=== PATIENT | female | born 1965 | race Caucasian/White ===

== ENCOUNTER 2018-07-10 16:51 | Inpatient (IN) | payer OTHER, MEDICAID ==
[2018-07-10] MEDS: morphine 4 MG/ML VIAL IM (17:04)
[2018-07-10] MEDS: ONDANSETRON (ODT) 4 MG TAB ODT (17:04)
[2018-07-10] MEDS: ONDANSETRON 4 MG INJ IV (19:57)
[2018-07-10] MEDS: morphine 4 MG/ML VIAL IV (19:57)
[2018-07-10] MEDS: SOD CHLORIDE 0.9% 500 ML IV (19:57)
[2018-07-10 20:09] LABS: ADD MAN DIFF? NO
[2018-07-10 20:14] LABS: WHITE BLOOD COUNT 17.8 10^3/ul (4.8-10.8)
[2018-07-10 20:14] LABS: ABNORMAL IP MESSAGE 1; BASOPHIL # 0.1 10^3/ul (0.0-0.1); BASOPHILS % 0.5 % (0.0-2.0); EOSINOPHILS # 0.1 10^3/ul (0.0-0.5); EOSINOPHILS % 0.8 % (0.0-7.0); HEMATOCRIT 30.8 % (37.0-47.0); HEMOGLOBIN 9.5 g/dl (12.0-16.0); LYMPHOCYTES # 1.3 10^3/ul (0.8-2.9); MEAN CORPUSCULAR HEMOGLOBIN 28.6 pg (29.0-33.0); MEAN CORPUSCULAR HGB CONC 30.8 g/dl (32.0-37.0); MEAN CORPUSCULAR VOLUME 92.8 fl (82.0-101.0); MEAN PLATELET VOLUME 13.1 fl (7.4-10.4); MONOCYTE # 0.5 10^3/ul (0.3-0.9); MONOCYTES % 2.6 % (0.0-11.0); NEUTROPHIL # 15.1 10^3/ul (1.6-7.5); NEUTROPHILS % 85.2 % (39.0-77.0); PLATELET COUNT 280 10^3/UL (140-415); RED BLOOD COUNT 3.32 10^6/ul (4.20-5.40); RED CELL DISTRIBUTION WIDTH 16.5 % (11.5-14.5)
[2018-07-10 20:16] LABS: POSITIVE DIFF @See below
[2018-07-10] MEDS ORDERED: ACETAMINOPHEN 325 MG TAB PO (20:30)
[2018-07-10] MEDS ORDERED: ONDANSETRON 4 MG INJ IV ×2 (20:30→21:00)
[2018-07-10 20:35] LABS: INR 1.02; PARTIAL THROMBOPLASTIN TIME 27.3 Sec (23.0-35.0); PROTIME 13.5 Sec (11.9-14.9); PT RATIO 1.1
[2018-07-10 20:45] LABS: ANION GAP 7 (5-13); BLOOD UREA NITROGEN 25 mg/dl (7-20); CALCIUM 8.6 mg/dl (8.4-10.2); CARBON DIOXIDE 32 mmol/L (21-31); CHLORIDE 98 mmol/L (97-110); CREATININE 2.17 mg/dl (0.44-1.00); Estimated GFR 24 mL/min (>60); GLUCOSE 165 mg/dl (70-220); POTASSIUM 3.9 mmol/L (3.5-5.1); SODIUM 137 mmol/L (135-144)
[2018-07-10] MEDS ORDERED: NACL 0.9% 3 ML SYG IV (21:00)
[2018-07-10] MEDS ORDERED: DOCUSATE SODIUM 100 MG CAP PO (21:00)
[2018-07-10 21:06] LABS: CREATINE KINASE 28 IU/L (23-200)
[2018-07-10 21:20] LABS: CK-MB 1.69 ng/ml (0.0-2.4); TROPONIN-I < 0.012 ng/ml (0.000-0.120)
[2018-07-10] MEDS: HYDROmorphONE 2 MG/ML SYG IV (21:32)
[2018-07-10] MEDS: morphine 2 MG INJ IV (22:59)
[2018-07-11] MEDS: HYDROmorphONE 0.5 MG/0.5 ML SYG IV ×2 (02:27→20:15)
[2018-07-11] MEDS: ONDANSETRON 4 MG INJ IV (02:50)
[2018-07-11] MEDS ORDERED: DEXTROSE 50% 50 ML SYRINGE IV ×2 (04:30)
[2018-07-11] MEDS ORDERED: GLUCOSE GEL 15 GRAM TUBE PO ×2 (04:30)
[2018-07-11] MEDS ORDERED: GLUCAGON 1 MG INJ IM (04:30)
[2018-07-11 06:27] LABS: ADD MAN DIFF? NO
[2018-07-11 06:33] LABS: BASOPHIL # 0.1 10^3/ul (0.0-0.1); BASOPHILS % 0.4 % (0.0-2.0); EOSINOPHILS # 0.1 10^3/ul (0.0-0.5); EOSINOPHILS % 0.8 % (0.0-7.0); HEMATOCRIT 27.9 % (37.0-47.0); HEMOGLOBIN 8.6 g/dl (12.0-16.0); LYMPHOCYTES # 1.1 10^3/ul (0.8-2.9); LYMPHOCYTES % 6.9 % (15.0-51.0); MEAN CORPUSCULAR HEMOGLOBIN 29.2 pg (29.0-33.0); MEAN CORPUSCULAR HGB CONC 30.8 g/dl (32.0-37.0); MEAN CORPUSCULAR VOLUME 94.6 fl (82.0-101.0); MEAN PLATELET VOLUME 12.9 fl (7.4-10.4); MONOCYTE # 0.6 10^3/ul (0.3-0.9); MONOCYTES % 3.8 % (0.0-11.0); NEUTROPHIL # 13.3 10^3/ul (1.6-7.5); NEUTROPHILS % 84.8 % (39.0-77.0); PLATELET COUNT 229 10^3/UL (140-415); RED BLOOD COUNT 2.95 10^6/ul (4.20-5.40); RED CELL DISTRIBUTION WIDTH 16.7 % (11.5-14.5)
[2018-07-11 06:33] LABS: WHITE BLOOD COUNT 15.7 10^3/ul (4.8-10.8)
[2018-07-11 06:47] LABS: HEMOGLOBIN A1C 6.5 % (0-5.9)
[2018-07-11 06:50] LABS: INR 1.04; PROTIME 13.7 Sec (11.9-14.9); PT RATIO 1.1
[2018-07-11 06:51] LABS: PARTIAL THROMBOPLASTIN TIME 29.5 Sec (23.0-35.0)
[2018-07-11 06:58] LABS: ALANINE AMINOTRANSFERASE 16 IU/L (13-69); ALBUMIN 3.1 g/dl (3.3-4.9); ALBUMIN/GLOBULIN RATIO 1.14; ALKALINE PHOSPHATASE 110 IU/L (42-121); ANION GAP 10 (5-13); ASPARTATE AMINO TRANSFERASE 16 IU/L (15-46); BILIRUBIN,INDIRECT 0.4 mg/dl (0-1.1); BILIRUBIN,TOTAL 0.4 mg/dl (0.2-1.3); BLOOD UREA NITROGEN 32 mg/dl (7-20); CALCIUM 8.4 mg/dl (8.4-10.2); CARBON DIOXIDE 30 mmol/L (21-31); CHLORIDE 96 mmol/L (97-110); CHOLESTEROL 158 mg/dl (100-200); CREATININE 2.84 mg/dl (0.44-1.00); Estimated GFR 17 mL/min (>60); GLUCOSE 228 mg/dl (70-220); HDL CHOLESTEROL 26 mg/dl (37-92); LDL CHOLESTEROL,CALCULATED 78 mg/dl; POTASSIUM 4.7 mmol/L (3.5-5.1); SODIUM 136 mmol/L (135-144); TOTAL PROTEIN 5.8 g/dl (6.1-8.1); TRIGLYCERIDES 271 mg/dl (0-149)
[2018-07-11] MEDS ORDERED: PENDING SANTYL ORDER FOR WOUND CARE XX (07:00)
[2018-07-11] MEDS: INSULIN ASPART [NOVOLOG] 3 ML PEN SC ×6 (07:59→20:19)
[2018-07-11] MEDS: morphine (ER) 15 MG TAB PO ×2 (14:30→17:48)
[2018-07-11 16:58] LABS: ADD UMIC YES; UR ASCORBIC ACID NEGATIVE (NEGATIVE); UR BACTERIA MODERATE /HPF (NONE SEEN); UR BILIRUBIN (Dip) NEGATIVE (NEGATIVE); UR BLOOD (Dip) NEGATIVE (NEGATIVE); UR CLARITY TURBID (CLEAR); UR COLOR AMBER (YELLOW); UR GLUCOSE (Dip) NEGATIVE (NEGATIVE); UR KETONES (Dip) TRACE mg/dL (NEGATIVE); UR LEUKOCYTE ESTERASE (Dip) 2+ Leu/ul (NEGATIVE); UR MUCUS FEW /HPF (NONE SEEN); UR NITRITE (Dip) NEGATIVE (NEGATIVE); UR RBC 27 /HPF (0-5); UR SPECIFIC GRAVITY (Dip) 1.025 (1.003-1.030); UR SQUAMOUS EPITHELIAL CELL FEW /HPF (FEW); UR TOTAL PROTEIN (Dip) 2+ mg/dl (NEGATIVE); UR UROBILINOGEN (Dip) NEGATIVE (NEGATIVE); UR WBC > 182 /HPF (0-5)
[2018-07-11] MEDS: BUDESONIDE (NEB) 0.5MG/2ML AMP INH (19:41)
[2018-07-11] MEDS: DOCUSATE SODIUM 100 MG CAP PO (20:18)
[2018-07-11] MEDS: FERROUS SULFATE (EC) 325 MG TAB PO (20:18)
[2018-07-11] MEDS: INSULIN GLARGINE [LANTus] (100 UNITS/ML) SYG SC (20:24)
[2018-07-11] MEDS: ARFORMOTEROL TARTRATE 15MCG/2 ML AMP INH (20:41)
[2018-07-11] MEDS ORDERED: DIPHENHYDRAMINE 50 MG INJ IM (22:00)
[2018-07-11] MEDS: DIPHENHYDRAMINE 50 MG INJ IV (22:07)
[2018-07-12] MEDS: ACCU-CHEK XX (02:00)
[2018-07-12] MEDS: SOD CHLORIDE 0.9% 1,000 ML IV (02:22)
[2018-07-12] MEDS: MIDODRINE 5 MG TAB PO (03:52)
[2018-07-12] MEDS: ACETAMINOPHEN 325 MG TAB PO (03:59)
[2018-07-12] MEDS ORDERED: VANCOMYCIN IV PER PHARMACY XX (04:00)
[2018-07-12] MEDS: SOD CHLORIDE 0.9% 500 ML IV (04:05)
[2018-07-12] MEDS: CEFTRIAXONE 2 GM/50 ML (PMX) 50 ML IVPB (05:08)
[2018-07-12 05:37] LABS: ADD MAN DIFF? NO
[2018-07-12 05:39] LABS: WHITE BLOOD COUNT 15.5 10^3/ul (4.8-10.8)
[2018-07-12 05:39] LABS: ABNORMAL IP MESSAGE 1; BASOPHIL # 0.1 10^3/ul (0.0-0.1); BASOPHILS % 0.4 % (0.0-2.0); EOSINOPHILS # 0.4 10^3/ul (0.0-0.5); EOSINOPHILS % 2.5 % (0.0-7.0); HEMATOCRIT 23.8 % (37.0-47.0); HEMOGLOBIN 7.2 g/dl (12.0-16.0); LYMPHOCYTES # 1.4 10^3/ul (0.8-2.9); LYMPHOCYTES % 8.9 % (15.0-51.0); MEAN CORPUSCULAR HEMOGLOBIN 28.7 pg (29.0-33.0); MEAN CORPUSCULAR HGB CONC 30.3 g/dl (32.0-37.0); MEAN CORPUSCULAR VOLUME 94.8 fl (82.0-101.0); MEAN PLATELET VOLUME 13.6 fl (7.4-10.4); MONOCYTE # 0.8 10^3/ul (0.3-0.9); MONOCYTES % 5.4 % (0.0-11.0); NEUTROPHIL # 12.5 10^3/ul (1.6-7.5); NEUTROPHILS % 80.5 % (39.0-77.0); PLATELET COUNT 201 10^3/UL (140-415); RED BLOOD COUNT 2.51 10^6/ul (4.20-5.40); RED CELL DISTRIBUTION WIDTH 16.6 % (11.5-14.5)
[2018-07-12] MEDS ORDERED: NORepinephrine 8MG/250 ML (PMX 250 ML (05:47)
[2018-07-12 05:53] LABS: POSITIVE DIFF @See below
[2018-07-12 06:18] LABS: LACTIC ACID 0.9 mmol/L (0.5-2.0)
[2018-07-12] MEDS: HYDROmorphONE 0.5 MG/0.5 ML SYG IV ×2 (06:18→14:03)
[2018-07-12] MEDS: VANCOMYCIN 1 GM 250 ML IVPB (06:18)
[2018-07-12] MEDS: NORepinephrine 8MG/250 ML (PMX 250 ML IV (06:22)
[2018-07-12 06:42] LABS: ALANINE AMINOTRANSFERASE 20 IU/L (13-69); ALBUMIN 2.5 g/dl (3.3-4.9); ALKALINE PHOSPHATASE 91 IU/L (42-121); ANION GAP 11 (5-13); ASPARTATE AMINO TRANSFERASE 13 IU/L (15-46); BILIRUBIN,INDIRECT 0.3 mg/dl (0-1.1); BILIRUBIN,TOTAL 0.3 mg/dl (0.2-1.3); BLOOD UREA NITROGEN 44 mg/dl (7-20); CALCIUM 7.8 mg/dl (8.4-10.2); CARBON DIOXIDE 27 mmol/L (21-31); CHLORIDE 95 mmol/L (97-110); CREATININE 3.71 mg/dl (0.44-1.00); Estimated GFR 13 mL/min (>60); GLUCOSE 108 mg/dl (70-220); POTASSIUM 5.8 mmol/L (3.5-5.1); SODIUM 133 mmol/L (135-144)
[2018-07-12] MEDS: INSULIN ASPART [NOVOLOG] 3 ML PEN SC ×7 (07:35→21:00)
[2018-07-12] MEDS: AMLODIPINE 10 MG TAB PO (08:14)
[2018-07-12] MEDS: ARFORMOTEROL TARTRATE 15MCG/2 ML AMP INH ×2 (08:24→20:25)
[2018-07-12] MEDS: BUDESONIDE (NEB) 0.5MG/2ML AMP INH ×2 (08:24→20:25)
[2018-07-12] MEDS: HEPARIN 5,000 UNIT/1 ML VIAL SC ×2 (09:00→21:42)
[2018-07-12] MEDS: MONTELUKAST 10 MG TAB PO (09:02)
[2018-07-12] MEDS: DOCUSATE SODIUM 100 MG CAP PO (09:02)
[2018-07-12] MEDS: DIPHENHYDRAMINE 50 MG INJ IV (09:02)
[2018-07-12] MEDS: FERROUS SULFATE (EC) 325 MG TAB PO (09:02)
[2018-07-12] MEDS: morphine (ER) 15 MG TAB PO (09:03)
[2018-07-12] MEDS: POLYETHYLENE GLYCOL 17 GM PACKET PO (09:03)
[2018-07-12] MEDS: ASPIRIN 81 MG TAB PO (09:03)
[2018-07-12 09:44] LABS: ADD UMIC YES; UR ASCORBIC ACID NEGATIVE (NEGATIVE); UR BACTERIA FEW /HPF (NONE SEEN); UR BILIRUBIN (Dip) NEGATIVE (NEGATIVE); UR BLOOD (Dip) 1+ mg/dL (NEGATIVE); UR CLARITY TURBID (CLEAR); UR COLOR YELLOW (YELLOW); UR GLUCOSE (Dip) NEGATIVE (NEGATIVE); UR KETONES (Dip) NEGATIVE (NEGATIVE); UR LEUKOCYTE ESTERASE (Dip) 1+ Leu/ul (NEGATIVE); UR NITRITE (Dip) NEGATIVE (NEGATIVE); UR RBC 85 /HPF (0-5); UR SPECIFIC GRAVITY (Dip) 1.023 (1.003-1.030); UR SQUAMOUS EPITHELIAL CELL FEW /HPF (FEW); UR TOTAL PROTEIN (Dip) 2+ mg/dl (NEGATIVE); UR UROBILINOGEN (Dip) NEGATIVE (NEGATIVE); UR WBC > 182 /HPF (0-5)
[2018-07-12 10:16] LABS: ADD MAN DIFF? NO
[2018-07-12 10:23] LABS: ABNORMAL IP MESSAGE 1; BASOPHIL # 0.1 10^3/ul (0.0-0.1); BASOPHILS % 0.4 % (0.0-2.0); EOSINOPHILS # 0.4 10^3/ul (0.0-0.5); EOSINOPHILS % 2.5 % (0.0-7.0); HEMATOCRIT 25.6 % (37.0-47.0); HEMOGLOBIN 7.8 g/dl (12.0-16.0); LYMPHOCYTES # 1.6 10^3/ul (0.8-2.9); LYMPHOCYTES % 9.6 % (15.0-51.0); MEAN CORPUSCULAR HGB CONC 30.5 g/dl (32.0-37.0); MEAN CORPUSCULAR VOLUME 95.2 fl (82.0-101.0); MEAN PLATELET VOLUME 13.2 fl (7.4-10.4); MONOCYTE # 0.9 10^3/ul (0.3-0.9); MONOCYTES % 5.1 % (0.0-11.0); NEUTROPHIL # 13.3 10^3/ul (1.6-7.5); NEUTROPHILS % 79.7 % (39.0-77.0); PLATELET COUNT 225 10^3/UL (140-415); RED BLOOD COUNT 2.69 10^6/ul (4.20-5.40); RED CELL DISTRIBUTION WIDTH 16.5 % (11.5-14.5)
[2018-07-12 10:23] LABS: WHITE BLOOD COUNT 16.6 10^3/ul (4.8-10.8)
[2018-07-12 10:28] LABS: POSITIVE DIFF @See below
[2018-07-12 10:33] LABS: IRON 23 ug/dl (35-150)
[2018-07-12] MEDS: LIDOCAINE 1% (MPF) 5 ML VIAL SC (10:33)
[2018-07-12 10:37] LABS: LACTIC ACID 0.7 mmol/L (0.5-2.0)
[2018-07-12 10:43] LABS: % IRON SATURATION 14 % SAT (22-52); TOTAL IRON BINDING CAPACITY 163 ug/dl (241-421)
[2018-07-12] MEDS: ONDANSETRON 4 MG INJ IV (18:15)
[2018-07-12] MEDS: EPOETIN ALFA-EPBX (ESRD) 10,000 UNIT/ML VIAL SC (18:16)
[2018-07-12 20:36] LABS: HEPATITIS B SURFACE ANTIGEN NEGATIVE (NEGATIVE)
[2018-07-12 20:55] LABS: HEPATITIS B SURFACE ANTIBODY NEGATIVE (NEGATIVE)
[2018-07-12] MEDS: INSULIN GLARGINE [LANTus] (100 UNITS/ML) SYG SC (21:41)
[2018-07-13] MEDS: HEPARIN 1000 UNITS/ML 10 ML INJ CATHETER (00:02)
[2018-07-13] MEDS: DOCUSATE SODIUM 100 MG CAP PO ×3 (00:06→21:52)
[2018-07-13] MEDS: ALBUMIN HUMAN 25% 100 ML IV ×3 (00:07→11:41)
[2018-07-13] MEDS: NORepinephrine 8MG/250 ML (PMX 250 ML IV (00:10)
[2018-07-13] MEDS: ACCU-CHEK XX (02:00)
[2018-07-13] MEDS: CEFTRIAXONE 2 GM/50 ML (PMX) 50 ML IVPB (04:13)
[2018-07-13 06:15] LABS: ABNORMAL IP MESSAGE 1; HEMATOCRIT 20.4 % (37.0-47.0); MEAN CORPUSCULAR HEMOGLOBIN 28.8 pg (29.0-33.0); MEAN CORPUSCULAR HGB CONC 30.4 g/dl (32.0-37.0); MEAN CORPUSCULAR VOLUME 94.9 fl (82.0-101.0); PLATELET COUNT 190 10^3/UL (140-415); RED BLOOD COUNT 2.15 10^6/ul (4.20-5.40)
[2018-07-13 06:15] LABS: WHITE BLOOD COUNT 11.2 10^3/ul (4.8-10.8)
[2018-07-13 06:29] LABS: ANION GAP 8 (5-13); BLOOD UREA NITROGEN 19 mg/dl (7-20); CALCIUM 8.1 mg/dl (8.4-10.2); CARBON DIOXIDE 28 mmol/L (21-31); CHLORIDE 98 mmol/L (97-110); CREATININE 2.06 mg/dl (0.44-1.00); Estimated GFR 25 mL/min (>60); GLUCOSE 81 mg/dl (70-220); MAGNESIUM 1.9 mg/dl (1.7-2.5); PHOSPHORUS 5.7 mg/dl (2.5-4.9); POTASSIUM 4.2 mmol/L (3.5-5.1); SODIUM 134 mmol/L (135-144)
[2018-07-13 06:54] LABS: HEMOGLOBIN 6.2 g/dl (12.0-16.0)
[2018-07-13 06:55] LABS: POSITIVE DIFF @See below
[2018-07-13 06:56] LABS: ADD MAN DIFF? YES
[2018-07-13] MEDS: INSULIN ASPART [NOVOLOG] 3 ML PEN SC ×7 (07:35→21:00)
[2018-07-13] MEDS ORDERED: INSULIN GLARGINE [LANTus] (100 UNITS/ML) SYG SC ×2 (08:00→21:00)
[2018-07-13 08:34] LABS: ANISOCYTOSIS 1+ (0-0); BAND NEUTROPHILS #M 0.3 10^3/ul (0.0-0.6); BAND NEUTROPHILS % (M) 3 % (0-4); EOSINOPHILS % (M) 1 % (0-7); GIANT THROMBO% (M) 2 % (0-0); HYPOCHROMASIA 1+ (0-0); LYMPHOCYTES % (M) 9 % (15-51); MONOCYTE #M 0.2 10^3/ul (0.3-0.9); MONOCYTES % (M) 2 % (0-11); PLATELET ESTIMATE NORMAL; POLYCHROMASIA 2+ (0-0); SEG NEUT #M 9.6 10^3/ul (1.6-7.5); SEGMENTED NEUTROPHILS (M) % 85 % (39-77); SMUDGE%M 3 % (0-0)
[2018-07-13 08:42] LABS: ADD MAN DIFF? NO
[2018-07-13] MEDS: MIDODRINE 5 MG TAB PO ×3 (08:46→17:00)
[2018-07-13] MEDS: ACETAMINOPHEN 325 MG TAB PO (08:46)
[2018-07-13] MEDS: ASPIRIN 81 MG TAB PO (08:46)
[2018-07-13] MEDS: MONTELUKAST 10 MG TAB PO (08:46)
[2018-07-13] MEDS: FAMOTIDINE 20 MG TAB PO (08:46)
[2018-07-13 08:50] LABS: WHITE BLOOD COUNT 11.1 10^3/ul (4.8-10.8)
[2018-07-13 08:50] LABS: ABNORMAL IP MESSAGE 1; BASOPHILS % 0.4 % (0.0-2.0); EOSINOPHILS # 0.2 10^3/ul (0.0-0.5); EOSINOPHILS % 1.8 % (0.0-7.0); HEMATOCRIT 19.4 % (37.0-47.0); LYMPHOCYTES # 1.1 10^3/ul (0.8-2.9); LYMPHOCYTES % 9.6 % (15.0-51.0); MEAN CORPUSCULAR HEMOGLOBIN 28.6 pg (29.0-33.0); MEAN CORPUSCULAR HGB CONC 29.9 g/dl (32.0-37.0); MEAN CORPUSCULAR VOLUME 95.6 fl (82.0-101.0); MEAN PLATELET VOLUME 13.2 fl (7.4-10.4); MONOCYTE # 0.5 10^3/ul (0.3-0.9); MONOCYTES % 4.7 % (0.0-11.0); NEUTROPHIL # 9.1 10^3/ul (1.6-7.5); NEUTROPHILS % 81.9 % (39.0-77.0); PLATELET COUNT 173 10^3/UL (140-415); RED BLOOD COUNT 2.03 10^6/ul (4.20-5.40); RED CELL DISTRIBUTION WIDTH 15.9 % (11.5-14.5)
[2018-07-13] MEDS: HEPARIN 5,000 UNIT/1 ML VIAL SC ×2 (09:00→21:00)
[2018-07-13 09:08] LABS: POSITIVE DIFF @See below
[2018-07-13 09:09] LABS: HEMOGLOBIN 5.8 g/dl (12.0-16.0)
[2018-07-13] MEDS: POLYETHYLENE GLYCOL 17 GM PACKET PO (09:19)
[2018-07-13] MEDS: HYDROmorphONE 0.5 MG/0.5 ML SYG IV (10:12)
[2018-07-13] MEDS: DIPHENHYDRAMINE 50 MG INJ IV (11:39)
[2018-07-13] MEDS: ARFORMOTEROL TARTRATE 15MCG/2 ML AMP INH ×2 (12:12→20:09)
[2018-07-13] MEDS: BUDESONIDE (NEB) 0.5MG/2ML AMP INH ×2 (12:13→20:09)
[2018-07-13] MEDS: SOD FERRIC GLUC COMPLX 125 MG in SOD CHLORIDE 0.9% 100 ML IVPB (13:00)
[2018-07-13 16:31] LABS: ANION GAP 12 (5-13); BLOOD UREA NITROGEN 20 mg/dl (7-20); CARBON DIOXIDE 26 mmol/L (21-31); CHLORIDE 98 mmol/L (97-110); CREATININE 2.36 mg/dl (0.44-1.00); Estimated GFR 22 mL/min (>60); GLUCOSE 83 mg/dl (70-220); MAGNESIUM 1.8 mg/dl (1.7-2.5); POTASSIUM 4.6 mmol/L (3.5-5.1); SODIUM 136 mmol/L (135-144)
[2018-07-13 16:43] LABS: TROPONIN-I < 0.012 ng/ml (0.000-0.120)
[2018-07-13 16:45] LABS: IMMEDIATE SPIN CROSSMATCH 1 2
[2018-07-13] MEDS: ATORVASTATIN 20 MG TAB PO (21:52)
[2018-07-13] MEDS: INSULIN GLARGINE [LANTus] (100 UNITS/ML) SYG SC (22:01)
[2018-07-14 00:55] LABS: TROPONIN-I < 0.012 ng/ml (0.000-0.120)
[2018-07-14] MEDS: ACCU-CHEK XX (02:00)
[2018-07-14] MEDS: CEFTRIAXONE 2 GM/50 ML (PMX) 50 ML IVPB (05:01)
[2018-07-14 05:27] LABS: ADD MAN DIFF? NO
[2018-07-14 05:30] LABS: ABNORMAL IP MESSAGE 1; BASOPHIL # 0.1 10^3/ul (0.0-0.1); BASOPHILS % 0.8 % (0.0-2.0); EOSINOPHILS # 0.1 10^3/ul (0.0-0.5); EOSINOPHILS % 1.6 % (0.0-7.0); HEMATOCRIT 24.9 % (37.0-47.0); LYMPHOCYTES # 1.4 10^3/ul (0.8-2.9); MEAN CORPUSCULAR HEMOGLOBIN 29.1 pg (29.0-33.0); MEAN CORPUSCULAR HGB CONC 32.1 g/dl (32.0-37.0); MEAN CORPUSCULAR VOLUME 90.5 fl (82.0-101.0); MEAN PLATELET VOLUME 13.5 fl (7.4-10.4); MONOCYTE # 0.7 10^3/ul (0.3-0.9); MONOCYTES % 7.4 % (0.0-11.0); NEUTROPHIL # 6.3 10^3/ul (1.6-7.5); PLATELET COUNT 189 10^3/UL (140-415); RED BLOOD COUNT 2.75 10^6/ul (4.20-5.40); RED CELL DISTRIBUTION WIDTH 17.1 % (11.5-14.5)
[2018-07-14 05:30] LABS: WHITE BLOOD COUNT 8.8 10^3/ul (4.8-10.8)
[2018-07-14 05:34] LABS: POSITIVE DIFF @See below
[2018-07-14 05:59] LABS: VANCOMYCIN,RANDOM 11.4 ug/ml
[2018-07-14 06:03] LABS: ANION GAP 12 (5-13); BLOOD UREA NITROGEN 29 mg/dl (7-20); CALCIUM 8.1 mg/dl (8.4-10.2); CARBON DIOXIDE 26 mmol/L (21-31); CHLORIDE 100 mmol/L (97-110); CREATININE 3.25 mg/dl (0.44-1.00); Estimated GFR 15 mL/min (>60); GLUCOSE 83 mg/dl (70-220); POTASSIUM 4.5 mmol/L (3.5-5.1); SODIUM 138 mmol/L (135-144)
[2018-07-14] MEDS: INSULIN ASPART [NOVOLOG] 3 ML PEN SC ×7 (07:35→21:00)
[2018-07-14] MEDS: LACTULOSE 30ML CUP PO (08:30)
[2018-07-14] MEDS ORDERED: BISACODYL (EC) 5 MG TAB PO (08:30)
[2018-07-14] MEDS: HYDROmorphONE 0.5 MG/0.5 ML SYG IV ×2 (08:42→13:18)
[2018-07-14] MEDS: ASPIRIN (EC) 81 MG TAB PO (08:43)
[2018-07-14] MEDS: DOCUSATE SODIUM 100 MG CAP PO ×2 (08:43→21:24)
[2018-07-14] MEDS: MIDODRINE 5 MG TAB PO ×3 (08:44→18:32)
[2018-07-14] MEDS: FAMOTIDINE 20 MG TAB PO (08:44)
[2018-07-14] MEDS: MONTELUKAST 10 MG TAB PO (08:44)
[2018-07-14] MEDS: POLYETHYLENE GLYCOL 17 GM PACKET PO (08:44)
[2018-07-14] MEDS: HEPARIN 5,000 UNIT/1 ML VIAL SC ×2 (09:00→21:31)
[2018-07-14] MEDS: ARFORMOTEROL TARTRATE 15MCG/2 ML AMP INH ×2 (09:39→19:58)
[2018-07-14] MEDS: BUDESONIDE (NEB) 0.5MG/2ML AMP INH ×2 (09:39→19:58)
[2018-07-14] MEDS: BISACODYL (EC) 5 MG TAB PO (11:58)
[2018-07-14] MEDS: ONDANSETRON 4 MG INJ IV ×2 (13:18→23:03)
[2018-07-14] MEDS: VANCOMYCIN 1 GM 250 ML IVPB (13:23)
[2018-07-14] MEDS: SOD FERRIC GLUC COMPLX 125 MG in SOD CHLORIDE 0.9% 100 ML IVPB (18:29)
[2018-07-14] MEDS: ATORVASTATIN 20 MG TAB PO (21:24)
[2018-07-14] MEDS: INSULIN GLARGINE [LANTus] (100 UNITS/ML) SYG SC (22:50)
[2018-07-15] MEDS: ACCU-CHEK XX (02:16)
[2018-07-15] MEDS: HYDROmorphONE 0.5 MG/0.5 ML SYG IV (02:32)
[2018-07-15] MEDS: GLUCOSE GEL 15 GRAM TUBE BUCCAL (02:32)
[2018-07-15] MEDS: CEFTRIAXONE 2 GM/50 ML (PMX) 50 ML IVPB (04:34)
[2018-07-15 05:19] LABS: ADD MAN DIFF? NO
[2018-07-15 05:26] LABS: ABNORMAL IP MESSAGE 1; BASOPHIL # 0.1 10^3/ul (0.0-0.1); BASOPHILS % 0.5 % (0.0-2.0); EOSINOPHILS # 0.1 10^3/ul (0.0-0.5); HEMATOCRIT 27.1 % (37.0-47.0); HEMOGLOBIN 8.5 g/dl (12.0-16.0); LYMPHOCYTES # 0.8 10^3/ul (0.8-2.9); LYMPHOCYTES % 8.6 % (15.0-51.0); MEAN CORPUSCULAR HEMOGLOBIN 28.9 pg (29.0-33.0); MEAN CORPUSCULAR HGB CONC 31.4 g/dl (32.0-37.0); MEAN CORPUSCULAR VOLUME 92.2 fl (82.0-101.0); MEAN PLATELET VOLUME 13.9 fl (7.4-10.4); MONOCYTE # 0.5 10^3/ul (0.3-0.9); MONOCYTES % 5.4 % (0.0-11.0); NEUTROPHIL # 7.7 10^3/ul (1.6-7.5); NEUTROPHILS % 82.5 % (39.0-77.0); PLATELET COUNT 219 10^3/UL (140-415); RED BLOOD COUNT 2.94 10^6/ul (4.20-5.40); RED CELL DISTRIBUTION WIDTH 16.6 % (11.5-14.5)
[2018-07-15 05:26] LABS: WHITE BLOOD COUNT 9.3 10^3/ul (4.8-10.8)
[2018-07-15 05:40] LABS: POSITIVE DIFF @See below
[2018-07-15 05:45] LABS: ANION GAP 14 (5-13); BLOOD UREA NITROGEN 31 mg/dl (7-20); CALCIUM 8.5 mg/dl (8.4-10.2); CARBON DIOXIDE 24 mmol/L (21-31); CHLORIDE 104 mmol/L (97-110); CREATININE 3.77 mg/dl (0.44-1.00); Estimated GFR 13 mL/min (>60); GLUCOSE 74 mg/dl (70-220); SODIUM 142 mmol/L (135-144)
[2018-07-15] MEDS: BUDESONIDE (NEB) 0.5MG/2ML AMP INH ×2 (07:36→21:01)
[2018-07-15] MEDS: ARFORMOTEROL TARTRATE 15MCG/2 ML AMP INH ×2 (07:36→21:10)
[2018-07-15] MEDS: MIDODRINE 5 MG TAB PO ×3 (09:00→17:00)
[2018-07-15] MEDS: HEPARIN 5,000 UNIT/1 ML VIAL SC ×2 (09:00→21:00)
[2018-07-15] MEDS: INSULIN ASPART [NOVOLOG] 3 ML PEN SC ×4 (09:20→21:00)
[2018-07-15] MEDS: DOCUSATE SODIUM 100 MG CAP PO ×2 (09:30→21:00)
[2018-07-15] MEDS: FAMOTIDINE 20 MG TAB PO (09:30)
[2018-07-15] MEDS: MONTELUKAST 10 MG TAB PO (09:30)
[2018-07-15] MEDS: BISACODYL (EC) 5 MG TAB PO (09:33)
[2018-07-15] MEDS: BISACODYL 10 MG SUPP PR (10:24)
[2018-07-15] MEDS: ASPIRIN (EC) 81 MG TAB PO (12:03)
[2018-07-15] MEDS: ALTEPLASE (CATHFLO) 2 MG INJ CATHETER (15:20)
[2018-07-15] MEDS: FLUCONAZOLE 200 MG (PMX) 100 ML IVPB (16:00)
[2018-07-15] MEDS: METOCLOPRAMIDE 10 MG INJ IV ×2 (16:02→17:26)
[2018-07-15] MEDS: morphine 2 MG INJ IV (17:24)
[2018-07-15] MEDS: SOD FERRIC GLUC COMPLX 125 MG in SOD CHLORIDE 0.9% 100 ML IVPB (17:25)
[2018-07-15] MEDS: EPOETIN ALFA-EPBX (ESRD) 10,000 UNIT/ML VIAL SC (18:09)
[2018-07-15] MEDS: ATORVASTATIN 20 MG TAB PO (21:00)
[2018-07-15] MEDS: DEXTROSE 5%-0.45% NACL 1,000 ML IV (21:50)
[2018-07-16] MEDS: ACCU-CHEK XX (02:00)
[2018-07-16] MEDS: morphine 2 MG INJ IV ×3 (04:44→17:27)
[2018-07-16] MEDS: METOCLOPRAMIDE 10 MG INJ IV ×2 (05:20)
[2018-07-16 05:42] LABS: ADD MAN DIFF? NO
[2018-07-16 05:49] LABS: ABNORMAL IP MESSAGE 1; BASOPHIL # 0.1 10^3/ul (0.0-0.1); BASOPHILS % 0.6 % (0.0-2.0); EOSINOPHILS # 0.1 10^3/ul (0.0-0.5); EOSINOPHILS % 0.9 % (0.0-7.0); HEMATOCRIT 28.1 % (37.0-47.0); HEMOGLOBIN 8.8 g/dl (12.0-16.0); LYMPHOCYTES % 11.5 % (15.0-51.0); MEAN CORPUSCULAR HEMOGLOBIN 29.3 pg (29.0-33.0); MEAN CORPUSCULAR HGB CONC 31.3 g/dl (32.0-37.0); MEAN CORPUSCULAR VOLUME 93.7 fl (82.0-101.0); MEAN PLATELET VOLUME 13.5 fl (7.4-10.4); MONOCYTE # 0.6 10^3/ul (0.3-0.9); MONOCYTES % 6.2 % (0.0-11.0); NEUTROPHIL # 7.1 10^3/ul (1.6-7.5); NEUTROPHILS % 78.7 % (39.0-77.0); PLATELET COUNT 247 10^3/UL (140-415); RED CELL DISTRIBUTION WIDTH 16.3 % (11.5-14.5)
[2018-07-16 05:56] LABS: POSITIVE DIFF @See below
[2018-07-16 06:18] LABS: ANION GAP 15 (5-13); BLOOD UREA NITROGEN 34 mg/dl (7-20); CALCIUM 8.6 mg/dl (8.4-10.2); CARBON DIOXIDE 22 mmol/L (21-31); CHLORIDE 105 mmol/L (97-110); CREATININE 3.87 mg/dl (0.44-1.00); Estimated GFR 12 mL/min (>60); GLUCOSE 141 mg/dl (70-220); MAGNESIUM 1.5 mg/dl (1.7-2.5); PHOSPHORUS 5.9 mg/dl (2.5-4.9); POTASSIUM 3.7 mmol/L (3.5-5.1); SODIUM 142 mmol/L (135-144)
[2018-07-16] MEDS: ARFORMOTEROL TARTRATE 15MCG/2 ML AMP INH ×2 (08:37→21:00)
[2018-07-16] MEDS: BUDESONIDE (NEB) 0.5MG/2ML AMP INH ×2 (08:37→21:01)
[2018-07-16] MEDS: INSULIN ASPART [NOVOLOG] 3 ML PEN SC ×4 (08:59→20:53)
[2018-07-16] MEDS: MIDODRINE 5 MG TAB PO ×3 (09:00→17:00)
[2018-07-16] MEDS: HEPARIN 1000 UNITS/ML 10 ML INJ CATHETER (10:29)
[2018-07-16] MEDS: ASPIRIN (EC) 81 MG TAB PO (11:18)
[2018-07-16] MEDS: DOCUSATE SODIUM 100 MG CAP PO ×2 (11:19→20:48)
[2018-07-16] MEDS: FAMOTIDINE 20 MG TAB PO (11:19)
[2018-07-16] MEDS: MONTELUKAST 10 MG TAB PO (11:19)
[2018-07-16] MEDS: POLYETHYLENE GLYCOL 17 GM PACKET PO (11:20)
[2018-07-16] MEDS: HEPARIN 5,000 UNIT/1 ML VIAL SC ×2 (11:29→20:51)
[2018-07-16] MEDS: SEVELAMER CARBONATE 800 MG TABLET PO ×2 (11:32→17:27)
[2018-07-16] MEDS: MAGNESIUM SULFATE 2 GM/50 ML 50 ML IVPB ×2 (11:34→15:28)
[2018-07-16] MEDS: SOD FERRIC GLUC COMPLX 125 MG in SOD CHLORIDE 0.9% 100 ML IVPB (13:46)
[2018-07-16] MEDS: FLUCONAZOLE 200 MG (PMX) 100 ML IVPB (13:52)
[2018-07-16] MEDS: COLLAGENASE 5 GM (UD JAR) TOP (17:27)
[2018-07-16] MEDS: ATORVASTATIN 20 MG TAB PO (20:47)
[2018-07-17] MEDS: ACCU-CHEK XX (01:43)
[2018-07-17 05:25] LABS: ADD MAN DIFF? NO
[2018-07-17 05:35] LABS: ABNORMAL IP MESSAGE 1; BASOPHIL # 0.1 10^3/ul (0.0-0.1); BASOPHILS % 0.8 % (0.0-2.0); EOSINOPHILS # 0.1 10^3/ul (0.0-0.5); EOSINOPHILS % 1.4 % (0.0-7.0); HEMATOCRIT 27.1 % (37.0-47.0); HEMOGLOBIN 8.4 g/dl (12.0-16.0); LYMPHOCYTES # 1.5 10^3/ul (0.8-2.9); LYMPHOCYTES % 16.5 % (15.0-51.0); MEAN CORPUSCULAR VOLUME 93.4 fl (82.0-101.0); MONOCYTE # 0.8 10^3/ul (0.3-0.9); MONOCYTES % 8.2 % (0.0-11.0); NEUTROPHIL # 6.4 10^3/ul (1.6-7.5); NEUTROPHILS % 68.3 % (39.0-77.0); PLATELET COUNT 265 10^3/UL (140-415); RED CELL DISTRIBUTION WIDTH 16.3 % (11.5-14.5)
[2018-07-17 05:35] LABS: WHITE BLOOD COUNT 9.3 10^3/ul (4.8-10.8)
[2018-07-17 05:54] LABS: ANION GAP 6 (5-13); BLOOD UREA NITROGEN 22 mg/dl (7-20); CALCIUM 8.5 mg/dl (8.4-10.2); CARBON DIOXIDE 30 mmol/L (21-31); CHLORIDE 104 mmol/L (97-110); Estimated GFR 20 mL/min (>60); GLUCOSE 175 mg/dl (70-220); POTASSIUM 3.3 mmol/L (3.5-5.1); SODIUM 140 mmol/L (135-144)
[2018-07-17 05:59] LABS: VANCOMYCIN,RANDOM 15.2 ug/ml
[2018-07-17 06:00] LABS: POSITIVE DIFF @See below
[2018-07-17 06:01] LABS: MEAN PLATELET VOLUME 13.5 fl (7.4-10.4)
[2018-07-17] MEDS: SEVELAMER CARBONATE 800 MG TABLET PO ×3 (08:44→17:25)
[2018-07-17] MEDS: ASPIRIN (EC) 81 MG TAB PO (08:45)
[2018-07-17] MEDS: MONTELUKAST 10 MG TAB PO (08:45)
[2018-07-17] MEDS: DOCUSATE SODIUM 100 MG CAP PO ×2 (08:45→22:25)
[2018-07-17] MEDS: FAMOTIDINE 20 MG TAB PO (08:45)
[2018-07-17] MEDS: POLYETHYLENE GLYCOL 17 GM PACKET PO (08:46)
[2018-07-17] MEDS: COLLAGENASE 5 GM (UD JAR) TOP (08:46)
[2018-07-17] MEDS: POTASSIUM CHLORIDE (SR) 20 MEQ TAB PO (08:46)
[2018-07-17] MEDS: HEPARIN 5,000 UNIT/1 ML VIAL SC ×2 (08:54→22:53)
[2018-07-17] MEDS: INSULIN ASPART [NOVOLOG] 3 ML PEN SC ×4 (08:55→22:25)
[2018-07-17] MEDS: INSULIN GLARGINE [LANTus] (100 UNITS/ML) SYG SC (08:56)
[2018-07-17] MEDS: morphine 2 MG INJ IV ×2 (09:13→15:42)
[2018-07-17] MEDS: BUDESONIDE (NEB) 0.5MG/2ML AMP INH ×2 (09:25→21:44)
[2018-07-17] MEDS: ARFORMOTEROL TARTRATE 15MCG/2 ML AMP INH ×2 (09:25→20:44)
[2018-07-17] MEDS: ONDANSETRON 4 MG INJ IV ×2 (09:57→17:31)
[2018-07-17] MEDS: SOD FERRIC GLUC COMPLX 125 MG in SOD CHLORIDE 0.9% 100 ML IVPB (12:46)
[2018-07-17] MEDS: FLUCONAZOLE 200 MG (PMX) 100 ML IVPB (12:46)
[2018-07-17] MEDS: VANCOMYCIN 1 GM 250 ML IVPB (15:00)
[2018-07-17] MEDS: LOSARTAN 50 MG TAB PO (15:38)
[2018-07-17] MEDS: AMLODIPINE 10 MG TAB PO (15:39)
[2018-07-17] MEDS ORDERED: hydrALAzine 20 MG INJ IV (17:00)
[2018-07-17] MEDS: hydrALAzine 20 MG INJ IV (17:31)
[2018-07-17] MEDS: HYDROmorphONE 0.5 MG/0.5 ML SYG IV (17:57)
[2018-07-17] MEDS: EPOETIN ALFA-EPBX (ESRD) 10,000 UNIT/ML VIAL SC (17:58)
[2018-07-17 18:01] LABS: MYOGLOBIN 70 mcg/L (< 67)
[2018-07-17] MEDS: ATORVASTATIN 20 MG TAB PO (22:53)
[2018-07-18] MEDS: HYDROmorphONE 0.5 MG/0.5 ML SYG IV (01:21)
[2018-07-18] MEDS: ACCU-CHEK XX (02:00)
[2018-07-18] MEDS: ONDANSETRON 4 MG INJ IV ×2 (02:57→12:48)
[2018-07-18] MEDS: morphine 2 MG INJ IV ×2 (03:07→12:49)
[2018-07-18 06:01] LABS: ABNORMAL IP MESSAGE 1; HEMATOCRIT 31.3 % (37.0-47.0); HEMOGLOBIN 9.3 g/dl (12.0-16.0); MEAN CORPUSCULAR HEMOGLOBIN 28.4 pg (29.0-33.0); MEAN CORPUSCULAR HGB CONC 29.7 g/dl (32.0-37.0); MEAN CORPUSCULAR VOLUME 95.7 fl (82.0-101.0); MEAN PLATELET VOLUME 13.3 fl (7.4-10.4); NUCLEATED RED BLOOD CELLS% 0.2 /100WBC (0.0-0.0); PLATELET COUNT 306 10^3/UL (140-415); RED BLOOD COUNT 3.27 10^6/ul (4.20-5.40); RED CELL DISTRIBUTION WIDTH 16.8 % (11.5-14.5)
[2018-07-18 06:18] LABS: ADD MAN DIFF? YES; POSITIVE DIFF @See below
[2018-07-18 06:24] LABS: ANION GAP 10 (5-13); BLOOD UREA NITROGEN 27 mg/dl (7-20); CALCIUM 9.3 mg/dl (8.4-10.2); CARBON DIOXIDE 27 mmol/L (21-31); CHLORIDE 106 mmol/L (97-110); CREATININE 2.83 mg/dl (0.44-1.00); Estimated GFR 17 mL/min (>60); GLUCOSE 113 mg/dl (70-220); POTASSIUM 4.6 mmol/L (3.5-5.1); SODIUM 143 mmol/L (135-144)
[2018-07-18] MEDS: INSULIN ASPART [NOVOLOG] 3 ML PEN SC ×2 (07:50→11:40)
[2018-07-18] MEDS: ARFORMOTEROL TARTRATE 15MCG/2 ML AMP INH (08:30)
[2018-07-18] MEDS: BUDESONIDE (NEB) 0.5MG/2ML AMP INH (08:38)
[2018-07-18 08:44] LABS: ANISOCYTOSIS 1+ (0-0); BAND NEUTROPHILS #M 0.3 10^3/ul (0.0-0.6); BAND NEUTROPHILS % (M) 3 % (0-4); EOSINOPHILS % (M) 2 % (0-7); GIANT THROMBO% (M) 12 % (0-0); LYMPHOCYTES #M 2.6 10^3/ul (0.8-2.9); LYMPHOCYTES % (M) 26 % (15-51); METAMYELOCYTES #M 0.1 10^3/ul (0.0-0.0); METAMYELOCYTES %M 1 % (0-0); MICROCYTOSIS 1+ (0-0); MONOCYTE #M 0.2 10^3/ul (0.3-0.9); MONOCYTES % (M) 2 % (0-11); MYELOCYTES #M 0.5 10^3/ul (0.0-0.0); MYELOCYTES % (M) 5 % (0-0); PLATELET ESTIMATE NORMAL; POIKILOCYTOSIS 1+ (0-0); POLYCHROMASIA 1+ (0-0); SEG NEUT #M 6.1 10^3/ul (1.6-7.5); SEGMENTED NEUTROPHILS (M) % 61 % (39-77); SMUDGE%M 5 % (0-0); SPHEROCYTES 1+ (0-0)
[2018-07-18] MEDS: SEVELAMER CARBONATE 800 MG TABLET PO ×2 (08:58→12:29)
[2018-07-18] MEDS: FAMOTIDINE 20 MG TAB PO (08:59)
[2018-07-18] MEDS: ASPIRIN (EC) 81 MG TAB PO (08:59)
[2018-07-18] MEDS: MONTELUKAST 10 MG TAB PO (08:59)
[2018-07-18] MEDS: DOCUSATE SODIUM 100 MG CAP PO (08:59)
[2018-07-18] MEDS: POLYETHYLENE GLYCOL 17 GM PACKET PO (08:59)
[2018-07-18] MEDS: LOSARTAN 50 MG TAB PO (09:00)
[2018-07-18] MEDS: AMLODIPINE 10 MG TAB PO (09:00)
[2018-07-18] MEDS: HEPARIN 5,000 UNIT/1 ML VIAL SC (09:01)
[2018-07-18] MEDS: INSULIN GLARGINE [LANTus] (100 UNITS/ML) SYG SC (09:55)
[2018-07-18] MEDS: HEPARIN 1000 UNITS/ML 10 ML INJ CATHETER (11:37)
[2018-07-18] MEDS: FLUCONAZOLE 200 MG (PMX) 100 ML IVPB (12:26)
== END 2018-07-18 16:17 | DRG 562 ==
LOC: PP2 20:02 → ICU 07-12 05:43 → MS1 07-14 13:23 → E/R 16:51
PROC: 05H633Z Insertion of Infusion Device into Left Subclavian Vein, Percutaneous Approach (ICD-10-PCS; principal; 2018-07-12)
PROC: 5A1D70Z Performance of Urinary Filtration, Intermittent, Less than 6 Hours Per Day (ICD-10-PCS; 2018-07-12)
PROC: 30233N1 Transfusion of Nonautologous Red Blood Cells into Peripheral Vein, Percutaneous Approach (ICD-10-PCS; 2018-07-13)
PROC: 5A1D70Z Performance of Urinary Filtration, Intermittent, Less than 6 Hours Per Day (ICD-10-PCS; 2018-07-16)
PROC: 5A1D70Z Performance of Urinary Filtration, Intermittent, Less than 6 Hours Per Day (ICD-10-PCS; 2018-07-18)
DX: S82.402A Unspecified fracture of shaft of left fibula, initial encounter for closed fracture (principal); R65.21 Severe sepsis with septic shock; N18.6 End stage renal disease; S72.434A Nondisplaced fracture of medial condyle of right femur, initial encounter for closed fracture; S72.492A Other fracture of lower end of left femur, initial encounter for closed fracture; S82.191A Other fracture of upper end of right tibia, initial encounter for closed fracture; I12.0 Hypertensive chronic kidney disease with stage 5 chronic kidney disease or end stage renal disease; J96.10 Chronic respiratory failure, unspecified whether with hypoxia or hypercapnia; S82.401A Unspecified fracture of shaft of right fibula, initial encounter for closed fracture; S82.192A Other fracture of upper end of left tibia, initial encounter for closed fracture; E11.22 Type 2 diabetes mellitus with diabetic chronic kidney disease; Z99.2 Dependence on renal dialysis; W05.0XXA Fall from non-moving wheelchair, initial encounter; Q05.9 Spina bifida, unspecified; Z79.4 Long term (current) use of insulin; D63.1 Anemia in chronic kidney disease; Z99.3 Dependence on wheelchair; E83.42 Hypomagnesemia; E87.5 Hyperkalemia
CPT/HCPCS: 36415; 36430; 36569; 71045; 72131; 73550; 73562; 73590; 73610; 73610-RT; 74018; 76937; 80048; 80053; 80061; 80202; 81001; 82533; 82550; 82553; 82728; 82962; 83036; 83540; 83605; 83735; 83874; 84100; 84443; 84484; 85025; 85610; 85730; 86706; 86850; 86900; 86901; 86920; 87040-91; 87081; 87086; 87340; 90935; 93005; 93306; 94640; 94664; 96372; 96374; 96375; 96376; 97110; 97163; 99285-25

== ENCOUNTER 2018-07-26 14:51 | Observation (INO) | payer OTHER, MEDICAID ==
[2018-07-26 17:48] LABS: ANION GAP 10 (5-13); BLOOD UREA NITROGEN 40 mg/dl (7-20); CALCIUM 8.6 mg/dl (8.4-10.2); CARBON DIOXIDE 24 mmol/L (21-31); CHLORIDE 102 mmol/L (97-110); CREATININE 2.85 mg/dl (0.44-1.00); Estimated GFR 17 mL/min (>60); GLUCOSE 162 mg/dl (70-220); SODIUM 136 mmol/L (135-144)
[2018-07-26] MEDS: HEPARIN 1000 UNITS/ML 10 ML INJ (18:15)
[2018-07-26] MEDS: FENTAnyl 50 MCG/ML VIAL (18:15)
[2018-07-26] MEDS: LIDOCAINE 1% (MDV) 20 ML INJ ×2 (18:15→18:16)
[2018-07-26] MEDS: MIDAZOLAM 1 MG/ML 2 ML INJ (18:16)
[2018-07-26] MEDS ORDERED: NA POLYST SULFON 15 GM/60 ML BTL PO (19:30)
[2018-07-26] MEDS: SODIUM POLYSTYRENE 15 GM KIT (POWDER + SORBITOL) PO (19:46)
[2018-07-26] MEDS: NA POLYST SULFON 15 GM/60 ML BTL PO (20:12)
[2018-07-26 22:35] LABS: ADD MAN DIFF? NO
[2018-07-26 22:40] LABS: ABNORMAL IP MESSAGE 1; BASOPHILS % 0.6 % (0.0-2.0); EOSINOPHILS # 0.1 10^3/ul (0.0-0.5); EOSINOPHILS % 2.1 % (0.0-7.0); HEMATOCRIT 34.6 % (37.0-47.0); HEMOGLOBIN 10.5 g/dl (12.0-16.0); LYMPHOCYTES # 1.8 10^3/ul (0.8-2.9); LYMPHOCYTES % 26.1 % (15.0-51.0); MEAN CORPUSCULAR HEMOGLOBIN 29.2 pg (29.0-33.0); MEAN CORPUSCULAR HGB CONC 30.3 g/dl (32.0-37.0); MEAN CORPUSCULAR VOLUME 96.1 fl (82.0-101.0); MEAN PLATELET VOLUME 13.3 fl (7.4-10.4); MONOCYTE # 0.4 10^3/ul (0.3-0.9); MONOCYTES % 6.5 % (0.0-11.0); NEUTROPHIL # 4.3 10^3/ul (1.6-7.5); NEUTROPHILS % 63.2 % (39.0-77.0); PLATELET COUNT 297 10^3/UL (140-415); RED CELL DISTRIBUTION WIDTH 17.5 % (11.5-14.5)
[2018-07-26 22:40] LABS: WHITE BLOOD COUNT 6.8 10^3/ul (4.8-10.8)
[2018-07-26 22:42] LABS: POSITIVE DIFF @See below
[2018-07-26 22:59] LABS: INR 0.92; PROTIME 12.5 Sec (11.9-14.9)
[2018-07-26] MEDS: ALBUTEROL 0.083% (NEB) 2.5 MG/3 ML AMP HHN (22:59)
[2018-07-26 23:00] LABS: ANION GAP 10 (5-13); BLOOD UREA NITROGEN 39 mg/dl (7-20); CALCIUM 9.4 mg/dl (8.4-10.2); CARBON DIOXIDE 28 mmol/L (21-31); CHLORIDE 101 mmol/L (97-110); CREATININE 3.24 mg/dl (0.44-1.00); Estimated GFR 15 mL/min (>60); GLUCOSE 174 mg/dl (70-220); PARTIAL THROMBOPLASTIN TIME 27.7 Sec (23.0-35.0); POTASSIUM 5.5 mmol/L (3.5-5.1); SODIUM 139 mmol/L (135-144)
[2018-07-26] MEDS ORDERED: ONDANSETRON 4 MG INJ IV (23:00)
[2018-07-26] MEDS ORDERED: ACETAMINOPHEN 325 MG TAB PO (23:00)
[2018-07-27] MEDS ORDERED: DOCUSATE SODIUM 100 MG CAP PO
[2018-07-27] MEDS ORDERED: ACETAMINOPHEN 325 MG TAB PO
[2018-07-27] MEDS ORDERED: BISACODYL (EC) 5 MG TAB PO
[2018-07-27] MEDS ORDERED: NACL 0.9% 3 ML SYG IV
[2018-07-27] MEDS ORDERED: VANCOMYCIN IV PER PHARMACY XX (05:00)
[2018-07-27] MEDS: POLYETHYLENE GLYCOL 17 GM PACKET PO ×2 (05:28→08:41)
[2018-07-27] MEDS: traMADol 50 MG TAB PO (05:31)
[2018-07-27] MEDS: VANCOMYCIN 1 GM 250 ML IVPB (05:32)
[2018-07-27] MEDS: HEPARIN 5,000 UNIT/1 ML VIAL SC ×4 (05:54→21:54)
[2018-07-27 06:21] LABS: ADD MAN DIFF? NO
[2018-07-27 06:23] LABS: BASOPHILS % 0.5 % (0.0-2.0); EOSINOPHILS # 0.2 10^3/ul (0.0-0.5); HEMATOCRIT 29.5 % (37.0-47.0); HEMOGLOBIN 8.9 g/dl (12.0-16.0); LYMPHOCYTES # 1.3 10^3/ul (0.8-2.9); LYMPHOCYTES % 17.1 % (15.0-51.0); MEAN CORPUSCULAR HEMOGLOBIN 29.4 pg (29.0-33.0); MEAN CORPUSCULAR HGB CONC 30.2 g/dl (32.0-37.0); MEAN CORPUSCULAR VOLUME 97.4 fl (82.0-101.0); MEAN PLATELET VOLUME 12.9 fl (7.4-10.4); MONOCYTE # 0.4 10^3/ul (0.3-0.9); MONOCYTES % 5.3 % (0.0-11.0); NEUTROPHIL # 5.6 10^3/ul (1.6-7.5); PLATELET COUNT 265 10^3/UL (140-415); RED BLOOD COUNT 3.03 10^6/ul (4.20-5.40); RED CELL DISTRIBUTION WIDTH 17.3 % (11.5-14.5)
[2018-07-27 06:23] LABS: WHITE BLOOD COUNT 7.6 10^3/ul (4.8-10.8)
[2018-07-27 06:55] LABS: ALANINE AMINOTRANSFERASE 11 IU/L (13-69); ALBUMIN 3.2 g/dl (3.3-4.9); ALBUMIN/GLOBULIN RATIO 1.14; ALKALINE PHOSPHATASE 163 IU/L (42-121); ANION GAP 9 (5-13); ASPARTATE AMINO TRANSFERASE 17 IU/L (15-46); BILIRUBIN,INDIRECT 0.3 mg/dl (0-1.1); BILIRUBIN,TOTAL 0.3 mg/dl (0.2-1.3); BLOOD UREA NITROGEN 41 mg/dl (7-20); CALCIUM 8.6 mg/dl (8.4-10.2); CARBON DIOXIDE 26 mmol/L (21-31); CHLORIDE 104 mmol/L (97-110); CHOL/HDL RATIO 3.9 RATIO; CHOLESTEROL 71 mg/dl (100-200); CREATININE 3.09 mg/dl (0.44-1.00); Estimated GFR 16 mL/min (>60); GLUCOSE 165 mg/dl (70-220); HDL CHOLESTEROL 18 mg/dl (37-92); LDL CHOLESTEROL,CALCULATED 3 mg/dl; POTASSIUM 5.2 mmol/L (3.5-5.1); SODIUM 139 mmol/L (135-144); TRIGLYCERIDES 252 mg/dl (0-149)
[2018-07-27 07:47] LABS: HEMOGLOBIN A1C 5.8 % (0-5.9)
[2018-07-27] MEDS: ONDANSETRON 4 MG TAB PO (09:08)
[2018-07-27] MEDS: HYDROCODONE/APAP (5/325) TAB PO (09:08)
[2018-07-28] MEDS: HYDROCODONE/APAP (5/325) TAB PO (06:00)
[2018-07-28] MEDS: HEPARIN 5,000 UNIT/1 ML VIAL SC ×2 (06:05→13:33)
[2018-07-28] MEDS: POLYETHYLENE GLYCOL 17 GM PACKET PO (08:38)
[2018-07-28] MEDS: BALSAM PERU/CASTOR OIL 60 GM TUBE TOP (08:38)
[2018-07-28] MEDS ORDERED: ACETAMINOPHEN 325 MG TAB PO (11:30)
[2018-07-28] MEDS ORDERED: NITROGLYCERIN (SL) 0.4 MG TAB SL (11:30)
[2018-07-28] MEDS ORDERED: HYDROCODONE/APAP (5/325) TAB PO (11:30)
[2018-07-28] MEDS: SEVELAMER CARBONATE 0.8 GM PKT PO ×2 (11:54→17:37)
[2018-07-28] MEDS: BISACODYL 10 MG SUPP PR (11:55)
[2018-07-28] MEDS: AMLODIPINE 10 MG TAB PO (11:55)
[2018-07-28] MEDS: FLUTICASONE/VILANTEROL 100-25 INH (13:14)
[2018-07-28] MEDS ORDERED: SENNA TAB PO (21:00)
[2018-07-28] MEDS ORDERED: NON-FORMULARY/PATIENT OWN MED (Protein Supplement (Promod) 30 ML) PO (21:00)
[2018-07-28] MEDS ORDERED: ATORVASTATIN 20 MG TAB PO (21:00)
[2018-07-28] MEDS ORDERED: ASCORBIC ACID 500 MG TAB PO (21:00)
[2018-07-28] MEDS ORDERED: LOSARTAN 25 MG TAB PO (21:00)
[2018-07-28] MEDS ORDERED: MONTELUKAST 10 MG TAB PO (21:00)
[2018-07-29] MEDS ORDERED: FAMOTIDINE 20 MG TAB PO (09:00)
[2018-07-29] MEDS ORDERED: MULTIVIT/CA CARB/B CMPLX/FA TAB PO (09:00)
[2018-07-29] MEDS ORDERED: NA POLYST SULFON 15 GM/60 ML BTL PO (09:00)
[2018-07-29] MEDS ORDERED: POLYETHYLENE GLYCOL 17 GM PACKET PO (09:00)
[2018-07-29] MEDS ORDERED: CYANOCOBALAMIN 500 MCG TAB PO (09:00)
[2018-07-29] MEDS ORDERED: ASPIRIN (EC) 81 MG TAB PO (09:00)
== END 2018-07-28 18:13 ==
LOC: E/R 14:51 → TEL 22:33
DX: T82.41XA Breakdown (mechanical) of vascular dialysis catheter, initial encounter (principal); I12.0 Hypertensive chronic kidney disease with stage 5 chronic kidney disease or end stage renal disease; E11.22 Type 2 diabetes mellitus with diabetic chronic kidney disease; N18.6 End stage renal disease; Z99.2 Dependence on renal dialysis; Q63.1 Lobulated, fused and horseshoe kidney; J45.909 Unspecified asthma, uncomplicated; J44.9 Chronic obstructive pulmonary disease, unspecified; E78.5 Hyperlipidemia, unspecified; R78.81 Bacteremia; B95.62 Methicillin resistant Staphylococcus aureus infection as the cause of diseases classified elsewhere; Q05.9 Spina bifida, unspecified; Z99.3 Dependence on wheelchair; J84.10 Pulmonary fibrosis, unspecified; M89.8X9 Other specified disorders of bone, unspecified site; S72.402D Unspecified fracture of lower end of left femur, subsequent encounter for closed fracture with routine healing; S82.101D Unspecified fracture of upper end of right tibia, subsequent encounter for closed fracture with routine healing; W19.XXXD Unspecified fall, subsequent encounter; Y84.1 Kidney dialysis as the cause of abnormal reaction of the patient, or of later complication, without mention of misadventure at the time of the procedure
CPT/HCPCS: 36556; 71045; 80048; 80053; 80061; 83036; 83735; 84443; 85025; 85610; 85730; 87040-91; 90935; 93005; 94664; G0378